=== PATIENT | female | born 1980 | race Caucasian/White ===

== ENCOUNTER → 2020-01-24 | Outpatient (CLI) | payer OTHER | END | disposition home or self-care (01) | LOC: LABWHC1 10:26 | PROVIDERS: ATTEND Surgery | DX: Z01.818 Encounter for other preprocedural examination (principal) ==

== ENCOUNTER → 2020-05-09 | Outpatient (CLI) | payer OTHER | END | disposition home or self-care (01) | LOC: LABWHC1 13:07 | PROVIDERS: ATTEND Family Medicine | DX: Z01.818 Encounter for other preprocedural examination (principal); Z20.828 Contact with and (suspected) exposure to other viral communicable diseases | CPT/HCPCS: U0003; C9803 ==

== ENCOUNTER → 2020-11-27 | Outpatient (CLI) | payer OTHER ==
[2020-11-27 08:12] LABS: Basophils % (A) 0 %; Eosinophils # (A) 0.1 k/uL (0-0.7); Eosinophils % (A) 1 %; HCT 36.1 % (34.0-46.0); HGB 11.5 gm/dL (11.4-16.0); Hypochromasia Slight; Lymphocytes # (A) 1.8 k/uL (1.0-4.8); Lymphocytes % (A) 30 %; MCH 24.8 pg (25.0-35.0); MCHC 31.9 g/dL (31.0-37.0); MCV 77.8 fL (80.0-100.0); Mean Platelet Volume 7.1; Microcytosis Slight; Monocytes # (A) 0.3 k/uL (0-1.0); Monocytes % (A) 5 %; Neutrophils # (A) 3.7 k/uL (1.3-7.7); Neutrophils % (A) 61 %; Platelet Count 233 k/uL (150-450); RBC 4.64 m/uL (3.80-5.40); RDW 15.9 % (11.5-15.5)
[2020-11-27 08:19] LABS: Albumin 3.8 g/dL (3.5-5.0); Bilirubin,Unconjugated 0.6 mg/dL (0.0-1.1); Total Bilirubin 0.6 mg/dL (0.2-1.3); Total Protein 7.6 g/dL (6.3-8.2)
--- NOTE | 2020-11-27 08:53 | US ---
EXAMINATION TYPE: US liver DATE OF EXAM: 11/27/2020 COMPARISON: NONE CLINICAL HISTORY: B18.2 Chronic viral hepatitis C. Hx Hep C with recent flair up per patient. EXAM MEASUREMENTS: Liver Length: 19.5 cm Gallbladder Wall: 0.2 cm CBD: 0.3 cm Right Kidney: 12.1 x 5.4 x 4.1 cm Pancreas: wnl Liver: Appears enlarged in size Gallbladder: Multiple echogenic foci Evidence for sonographic Mckeon's sign: neg CBD: wnl Right Kidney: No hydronephrosis or masses seen Visualized pancreas unremarkable. Visualized liver shows no concerning mass or ductal dilatation. No surrounding ascites. Gallbladder shows no shadowing mobile stones. No right-sided hydronephrosis. IMPRESSION: Hepatomegaly without intrahepatic mass or ductal dilatation.
[2020-12-01 15:05] LABS: HCV Qualitative Result DETECTED (Not detected); HCV Quant Log 5.05 (<1.08)
== END | disposition home or self-care (01) ==
LOC: RADUSWWP 07:16
PROVIDERS: ATTEND Internal Medicine Gastroenterology
DX: R16.0 Hepatomegaly, not elsewhere classified (principal); B18.2 Chronic viral hepatitis C
CPT/HCPCS: 76705; 80076; 85025; 87522; 87902

== ENCOUNTER → 2021-02-12 | Outpatient (CLI) | payer OTHER ==
[2021-02-12 18:45] LABS: Basophils # (A) 0.03 X 10*3/uL (0.00-0.10); Basophils % (A) 0.5 %; Eosinophils # (A) 0.09 X 10*3/uL (0.04-0.35); Eosinophils % (A) 1.6 %; HCT 35.2 % (37.2-46.3); HGB 10.8 g/dL (12.0-15.0); Lymphocytes # (A) 1.95 X 10*3/uL (0.90-5.00); Lymphocytes % (A) 34.3 %; MCH 25.4 pg (27.0-32.0); MCHC 30.7 g/dL (32.0-37.0); MCV 82.6 fL (80.0-97.0); Mean Platelet Volume 11.9 fL (9.5-12.2); Monocytes # (A) 0.38 X 10*3/uL (0.20-1.00); Monocytes % (A) 6.7 %; Neutrophils % (A) 56.4 %; Platelet Count 221 X 10*3/uL (140-440); RBC 4.26 X 10*6/uL (4.10-5.20); RDW 16.6 % (11.5-14.5); WBC 5.68 X 10*3/uL (4.50-10.00)
[2021-02-12 20:05] LABS: Albumin/Globulin Ratio 1.21 (1.60-3.17); Bilirubin, Conjugated 0.2 mg/dL (0.20-0.40); Bilirubin,Unconjugated 0.3 mg/dL; Globulin 3.3 g/dL (1.6-3.3); Total Bilirubin 0.5 mg/dL (0.3-1.2); Total Protein 7.3 g/dL (6.2-8.2)
== END | disposition home or self-care (01) ==
LOC: LABWHC1 13:17
PROVIDERS: ATTEND Physician Assistant
DX: B18.2 Chronic viral hepatitis C (principal)
CPT/HCPCS: 36415; 80076; 85025; 87522

== ENCOUNTER → 2021-05-14 | Outpatient (CLI) | payer OTHER ==
--- NOTE | 2021-05-15 08:20 | MR ---
MRI CERVICAL SPINE: CLINICAL HISTORY: Headaches and neck pain and left arm numbness into fingers. TECHNIQUE: Multiplanar, multisequence imaging of the cervical spine is performed without IV contrast. COMPARISON: Outside cervical spine x-ray April 20, 2021. FINDINGS: Sagittal images of the cervical spine show the craniocervical junction to appear within nor mal limits. The cervical and upper thoracic spinal cord is normal in caliber and signal. There is lo ss of normal cervical curvature. The vertebral body and intravertebral disk heights are normal. The bone marrow signal intensity is within normal limits. Axial images at C2-C3 level shows some left-sided uncovertebral facet degenerative changes with mild asymmetric neural foraminal narrowing. Axial images at C3-C4 level shows central disc protrusion effacing the anterior thecal sac, patent bi lateral neural foramina. Axial images at C4-C5 level shows broad-based left paracentral disc protrusion effacing the anterior thecal sac up to the ventral surface of the spinal cord with mild to moderate left-sided neural marquis inal narrowing. Patent right-sided neural foramina. Axial images at C5-C6 level shows left paracentral disc protrusion causing flattening of the central cervical spinal cord, there is [id number] left greater than white bilateral neural foraminal na rrowing. Axial images at C6-C7 level showed broad based right paracentral disc protrusion effacing anterior th ecal sac and causing moderate to severe left and mild to moderate right-sided neural foraminal narrow ing. Axial images at C7-T1 level appear within normal limits. IMPRESSION: Reversal of normal cervical curvature with multilevel degenerative changes as detailed ab javier.
== END | disposition home or self-care (01) ==
LOC: RADMRIMAIN 15:48
PROVIDERS: ATTEND Orthopaedic Surgery
DX: M50.223 Other cervical disc displacement at C6-C7 level (principal); M99.71 Connective tissue and disc stenosis of intervertebral foramina of cervical region; M47.812 Spondylosis without myelopathy or radiculopathy, cervical region
CPT/HCPCS: 72141

== ENCOUNTER → 2021-10-19 | Outpatient (CLI) | payer OTHER ==
[2021-10-19 22:37] LABS: Anion Gap 10.2 mmol/L (10.00-18.00); Carbon Dioxide 22.4 mmol/L (20.0-27.5); Potassium 4.4 mmol/L (3.5-5.5)
== END | disposition home or self-care (01) ==
LOC: LABPAT 15:51
PROVIDERS: ATTEND Orthopaedic Surgery Hand Surgery
DX: Z01.812 Encounter for preprocedural laboratory examination (principal); G56.02 Carpal tunnel syndrome, left upper limb
CPT/HCPCS: 80051

== ENCOUNTER → 2021-10-19 | Outpatient (CLI) | payer OTHER ==
[2021-10-19 22:38] LABS: ALT 30 U/L (8-44); AST 22 U/L (13-35); Albumin 3.9 g/dL (3.8-4.9); Albumin/Globulin Ratio 1.38 (1.60-3.17); Alkaline Phosphatase 90 U/L (41-126); Bilirubin, Conjugated <0.20 mg/dL (0.20-0.40); Globulin 2.8 g/dL (1.6-3.3); Total Bilirubin <0.15 mg/dL (0.30-1.20); Total Protein 6.7 g/dL (6.2-8.2)
[2021-10-20 01:11] LABS: Basophils # (A) 0.03 X 10*3/uL (0.00-0.10); Basophils % (A) 0.5 %; Eosinophils # (A) 0.12 X 10*3/uL (0.04-0.35); HCT 37.4 % (37.2-46.3); Immature Grans, Automated 0.3 %; Lymphocytes # (A) 2.22 X 10*3/uL (0.90-5.00); Lymphocytes % (A) 36.6 %; MCH 27.3 pg (27.0-32.0); MCHC 32.1 g/dL (32.0-37.0); MCV 85.2 fL (80.0-97.0); Mean Platelet Volume 11.6 fL (9.5-12.2); Monocytes % (A) 6.6 %; NRBC Per 100 WBC 0 /100 WBCS (0.0-0.0); Neutrophils # (A) 3.28 X 10*3/uL (1.80-7.70); Platelet Count 213 X 10*3/uL (140-440); RBC 4.39 X 10*6/uL (4.10-5.20); RDW 14.8 % (11.5-14.5); WBC 6.07 X 10*3/uL (4.50-10.00)
== END | disposition home or self-care (01) ==
LOC: LABWHC1 15:48
PROVIDERS: ATTEND Internal Medicine Gastroenterology
DX: B18.2 Chronic viral hepatitis C (principal)
CPT/HCPCS: 36415; 80076; 85025; 87522

== ENCOUNTER 2021-10-21 08:40 | Day surgery (SDC) | payer OTHER ==
[2021-10-19 10:45] VITALS: BMI 35.4
--- NOTE | 2021-10-20 11:13 | P.HPOR ---
History of Present Illness H&P Date: 10/20/21 Chief Complaint: Left carpal tunnel syndrome Subjective: This is a 40 year old female that presents today for initial evaluation regarding left hand paresthesias that have been present for 1-1.5 years. She has been seeing Dr. Batista in regards to cervical radiculopathy as well and states that she will eventually need cervical fusion in the near future. She underwent an EMG which showed moderate carpal tunnel syndrome on the left and mild on the right. She states he has both neck pain and occasional shooting pains down her arms, but predominately her hand paresthesias involve only the wrist to finger tips. She states she has a history of rheumatoid arthritis but states that she was told it was "mild" and she is not currently on any medication for it. She denies any injury. Physical Examination: LUE: AIN/PIN/Radial/Ulnar/Median motor intact. Radial/Ulnar/Median SILT. 2+/4 Radial/Ulnar pulses palpated. Positive Durkan's compression. 5/5/ APB, 5/5 FDI. EMG: EMG reveals bilateral carpal tunnel syndrome, mild on the right, moderate on the left with C6-7 nerve root irritation present. Impression: 1.) B/L carpal tunnel syndrome, left worse than right Plan: Diagnosis and treatment options were discussed with the patient. Due to the long standing presence of her symptoms she states she would like to proceed with surgical intervention with a left open carpal tunnel release. I explained that she does have some overlap in her symptoms with concurrent cervical radiculopathy but she does have electrodiagnostic evidence of compression of the median nerve at the wrist. Risks and benefit of surgery including bleeding, infection, damage to surrounding tissue, need for further surgery, residual numbness were discussed and the patient wished to go forward with surgery. The patient was agreeable with this plan of action and will follow up post operatively. She is to obtain pre-op clearance prior to surgery, we will plan for open technique due to rheumatoid history. Jose Gupta DO Orthopedic Surgeon Past Medical History Past Medical History: GERD/Reflux Additional Past Medical History / Comment(s): Varicose veins. N/T TO LEFT HAND/WRIST History of Any Multi-Drug Resistant Organisms: None Reported Past Surgical History: Section, Orthopedic Surgery Additional Past Surgical History / Comment(s): ACL replaced right knee, 5 rectal surgeries, Section X1. COLONOSCOPY Past Anesthesia/Blood Transfusion Reactions: No Reported Reaction Smoking Status: Former smoker - Past Family History Father Family Medical History: Cancer Additional Family Medical History / Comment(s): Prostate cancer with mets. Medications and Allergies Home Medications Medication Instructions Recorded Confirmed Type EPINEPHrine (Auto Inject) [Epipen] 0.3 mg IM ONCE PRN 07/29/21 10/19/21 History HYDROcodone/APAP 7.5-325MG [[place] 1 tab PO QID PRN 07/29/21 10/19/21 History 7.5-325] Medroxyprogesterone Acetate 150 mg IM Q90D 07/29/21 10/19/21 History [Depo-Provera] polyethylene glycoL 3350 [Miralax] 17 gm PO HS 07/29/21 10/19/21 History Allergies Allergy/AdvReac Type Severity Reaction Status Date / Time bee venom protein (honey bee) Allergy Anaphylaxis Verified 10/19/21 10:33 Physical Examination Osteopathic Statement: *. No significant issues noted on an osteopathic structural exam other than those noted in the History and Physical/Consult.
--- NOTE | 2021-10-20 11:15 | P.HPOR ---
History of Present Illness H&P Date: 10/20/21 Chief Complaint: Right carpal tunnel syndrome, DeQuervain's Tenosynovitis Subjective: This is a 35 year old female that presents today for initial evaluation regarding bilateral hand numbness and right wrist soreness that has been present for 4-6 months. She has tried several injections with her [employer] and only had temporary relief from the carpal tunnel injection and right wrist injection. She states her numbness is worse at night and is associated with the thumb, index and middle fingers mainly. She has tried splinting at night time with little relief. Physical Examination: RUE: AIN/PIN/Radial/Ulnar/Median motor intact. Radial/Ulnar/Median SILT. 2+/4 Radial/Ulnar pulses palpated. 5/5 APB, 5/5 FDI. Positive Finkelsteins, negative CMC grind, Positive Durkan's compression. LUE: AIN/PIN/Radial/Ulnar/Median motor intact. Radial/Ulnar/Median SILT. 2+/4 Radial/Ulnar pulses palpated. 5/5 APB, 5/5 FDI. negative Finkelsteins, negative CMC grind, Positive Durkan's compression. Imaging: X-Rays of the bilateral wrist demonstrate no acute osseus abnormality. Impression: 1.) Right Dequervains Tenosynovitis 2.) B/L Carpal tunnel syndrome. Plan: Diagnosis and treatment options were discussed with the patient. She has failed conservative treatment of her right wrist tendonitis and bilateral carpal tunnel syndrome and would like to pursue surgical intervention. She will be scheduled for a right first dorsal compartment release and right endoscopic/possible open carpal tunnel release. Risks and benefit of surgery including bleeding, infection, damage to surrounding tissue, need for further surgery, possible need to convert to open procedure, residual numbness were discussed and the patient wished to go forward with surgery. Pre op labs/ EKG will be ordered. -Jose Gupta DO Orthopedic Hand/Upper Extremity Surgeon Past Medical History Past Medical History: GERD/Reflux Additional Past Medical History / Comment(s): Varicose veins. N/T TO LEFT HAND/WRIST History of Any Multi-Drug Resistant Organisms: None Reported Past Surgical History: Section, Orthopedic Surgery Additional Past Surgical History / Comment(s): ACL replaced right knee, 5 rectal surgeries, Section X1. COLONOSCOPY Past Anesthesia/Blood Transfusion Reactions: No Reported Reaction Smoking Status: Former smoker - Past Family History Father Family Medical History: Cancer Additional Family Medical History / Comment(s): Prostate cancer with mets. Medications and Allergies Home Medications Medication Instructions Recorded Confirmed Type EPINEPHrine (Auto Inject) [Epipen] 0.3 mg IM ONCE PRN 07/29/21 10/19/21 History HYDROcodone/APAP 7.5-325MG [[place] 1 tab PO QID PRN 07/29/21 10/19/21 History 7.5-325] Medroxyprogesterone Acetate 150 mg IM Q90D 07/29/21 10/19/21 History [Depo-Provera] polyethylene glycoL 3350 [Miralax] 17 gm PO HS 07/29/21 10/19/21 History Allergies Allergy/AdvReac Type Severity Reaction Status Date / Time bee venom protein (honey bee) Allergy Anaphylaxis Verified 10/19/21 10:33 Physical Examination Osteopathic Statement: *. No significant issues noted on an osteopathic structural exam other than those noted in the History and Physical/Consult.
[~2021-10-21 08:40] MED LIST: HYDROmorphone 0.5 MG/0.5 ML SYRINGE IVP PRN; LACTATED RINGERS 1,000 ML IV SCH; LIDOCAINE 1% (10MG/ML) FOR IV START INTRADERMA PRN; ONDANSETRON 4 MG/2 ML VIAL IVP ONE; Pre Op ABX Message 1 EACH MISC MISCELLANE ONE
[2021-10-21] MEDS ORDERED: KETAMINE 10 MG/ML 20 ML VIAL ONE (09:27)
[2021-10-21] MEDS ORDERED: fentaNYL (PF) 50 MCG/ML 2 ML AMP ONE (09:27)
[2021-10-21] MEDS ORDERED: LIDOCAINE 1% INJ 10MG/ML (20 ML MDV) ONE (09:27)
[2021-10-21] MEDS ORDERED: PROPOFOL 10 MG/ML 20 ML VIAL IV ONE (09:27)
[2021-10-21] MEDS ORDERED: MIDAZOLAM 2 MG/2 ML VIAL ONE (09:27)
[2021-10-21] MEDS ORDERED: LIDOCAINE 1% INJ 10MG/ML (20 ML MDV) SQ ONE (09:36)
[2021-10-21] MEDS ORDERED: BUPIVACAINE (PF) 0.5% 30 ML VIAL SQ ONE (09:36)
[2021-10-21 10:25] VITALS: BP 116/72; PULSE 85; RESP 16
--- NOTE | 2021-10-22 11:22 | P.OP ---
Date of Procedure: 10/21/21 Preoperative Diagnosis: 1.) Left carpal tunnel syndrome Postoperative Diagnosis: Left carpal tunnel syndrome Procedure(s) Performed: 1.) Left open carpal tunnel release Anesthesia: MAC Surgeon: Jose Gupta Estimated Blood Loss (ml): 0 Pathology: none sent Condition: stable Disposition: PACU Description of Procedure: This is a 41 year old female who presents today for a left open carpal tunnel release after having failed conservative treatment in the past. Risks and benefits of surgery were discussed with the patient including bleeding, damage to surrounding tissue, infection, need for further surgery as well as risks of anesthesia including pulmonary embolism and even and the patient wished to proceed with surgical intervention. The patients was seen in the pre-operative area by myself. Consent and H&P were completed and updated. The correct extremity was marked in the pre-operative area by myself and all other questions were answered. Operative Narrative: The patient was brought to the operating room by the department of anesthe georges. They remained on the portable stretcher and a rolling hand table was brought to the side of the operative extremity. Pre-operative time out was performed indicating the correct patient, procedure and laterality. All in the room agreed. The patient was then drifted off to sleep by the department of anesthesia. MAC anesthesia was utilized and a 50:50 mixture of 1% Lidocaine and 0.5% bupivacaine was injected into the subcutaneous tissues of the palmar skin, 9ccs total. A nonsterile tourniquet was then applied to the operative extremity and the left upper extremity was then prepped and draped in normal sterile fashion. The operative extremity was the exsanguinated with an esmarch bandage and the tourniquet was inflated to 250mmHg. 15 blade scalpel was utilized to make a longitudinal incision on the palmar skin in line with the radial boarder of the ring finger to a point distally at the intersection of Kaplans cardinal line. Heiss retractor was utilized to spread subcutaneous tissue and scalpel was used to cut through the superficial palmar fascia to reveal the transverse carpal ligament. The transverse carpal ligament was then sharply incised in line with the incision and tenotomy scissors were used to spread distally and the distal portion of the transverse carpal ligament was released using tenotomy scissors from distal to proximal under direct visualization. The median nerve was directly visualized and was intact. Proximal fascia of the distal forearm was also released under direct visualization taking care to preserve the palmar cutaneous branch of the median nerve. The wound was then closed with 4-0 nylon suture in a horizontal mattress fashion. Sterile dressing was applied consisting of adaptic, 4x4s, webril, and an alana bandage. Tourniquet was let down and the hand immediately was well perfused. The patient was then woken by the department of anesthesia and transferred to PACU in stable condition. Simone RODRIGUEZ was present for the case in it's entirety for skilled assistance and protection of vital neurovascular structures. Jose Gupta D.O. Orthopedic Hand/Upper Extremity Surgeon
== END 2021-10-21 10:35 | disposition home or self-care (01) ==
LOC: OR 08:40
PROVIDERS: ATTEND Orthopaedic Surgery Hand Surgery
DX: G56.02 Carpal tunnel syndrome, left upper limb (principal); M65.4 Radial styloid tenosynovitis [de Quervain]; K21.9 Gastro-esophageal reflux disease without esophagitis; I83.90 Asymptomatic varicose veins of unspecified lower extremity; Z98.891 History of uterine scar from previous surgery; Z98.890 Other specified postprocedural states; Z87.891 Personal history of nicotine dependence; Z80.42 Family history of malignant neoplasm of prostate; Z97.2 Presence of dental prosthetic device (complete) (partial); Z79.3 Long term (current) use of hormonal contraceptives; Z79.899 Other long term (current) drug therapy; Z91.030 Bee allergy status
CPT/HCPCS: 81025; 64721; J2250; J2405; J2001; J3010; J2704

== ENCOUNTER → 2023-12-30 | Outpatient (CLI) | payer OTHER ==
--- NOTE | 2024-01-04 12:15 | MM ---
Reason for Exam: Screening (asymptomatic). Patient History: Menarche at age 11. First Full-Term at age 16. Premenopausal. Risk Values: Leeann 5 year model risk: 0.6%. NCI Lifetime model risk: 7.0%. Tissue Density: The breasts are heterogeneously dense, which may obscure small masses. Findings: Analyzed By CAD. There is a small grouped calcification within the upper outer margin of the left breast for which spot magnification is recommended. There is an asymmetric density in the inner upper margin right breast and upper central left breast. Spot compression views are recommended. Overall Assessment: Incomplete: need additional imaging evaluation, BI-RAD 0 Management: Diagnostic Mammogram of both breasts. . Patient should continue monthly self-breast exams. A clinical breast exam by your physician is recommended on an annual basis. This exam should not preclude additional follow-up of suspicious palpable abnormalities. Note on Leeann scores and lifetime risk: 1. A Leeann score greater than 3% is considered moderate risk. If this is the case, consider specialist referral to assess eligibility for a risk reducing agent. 2. If overall lifetime risk for the development of breast cancer is 20% or higher, the patient may qualify for future screening with alternating mammogram and breast MRI. Electronically signed and approved by: Diaz Beasley M.D. Radiologis
--- NOTE | 2024-01-06 13:43 | US ---
EXAMINATION TYPE: US venous doppler duplex LE DATE OF EXAM: 12/30/2023 8:51 AM COMPARISON: NONE CLINICAL INDICATION: Female, 43 years old with history of R22.42 LOCALIZED SWELLING, MASS AND LUMP, L EFT LOW; Bilateral leg swelling SIDE PERFORMED: Bilateral TECHNIQUE: The lower extremity deep venous system is examined utilizing real time linear array sonog champ with graded compression, doppler sonography and color-flow sonography. VESSELS IMAGED: Common Femoral Vein Deep Femoral Vein Greater Saphenous Vein * Femoral Vein Popliteal Vein Small Saphenous Vein * Proximal Calf Veins (* superficial vessels) Right Leg: Appears negative for DVT Left Leg: Appears negative for DVT IMPRESSION: 1. Bilateral lower extremity ultrasound negative for deep venous thrombosis.
== END | disposition home or self-care (01) ==
LOC: RADUSWWP 08:45
PROVIDERS: ATTEND Family Medicine
DX: Z12.31 Encounter for screening mammogram for malignant neoplasm of breast (principal); R22.43 Localized swelling, mass and lump, lower limb, bilateral
CPT/HCPCS: 77067; 93922; 93970

== ENCOUNTER → 2024-01-05 | Outpatient (CLI) | payer OTHER ==
--- NOTE | 2024-01-05 15:31 | MM ---
Reason for Exam: Additional evaluation requested from abnormal screening. Last screening mammogram was performed less than 1 month ago. Patient History: Menarche at age 11. First Full-Term at age 16. Premenopausal. Risk Values: Leeann 5 year model risk: 0.6%. NCI Lifetime model risk: 7.0%. Prior Study Comparison: 12/30/2023 Bilateral MG screening mammo w CAD, [facility]. Tissue Density: There are scattered areas of fibroglandular density. Findings: Analyzed By CAD. On the right, the question focal asymmetry posteriorly upper outer quadrant disperses on additional views compatible with superimposition shadow. On the left, there is improved appearance to the 12-1 o'clock focal asymmetry on additional views suggesting islands of fibroglandular tissue. Posterior upper outer quadrant calcifications on magnification views show approximately 4 round and coarse calcifications favoring a benign etiology. Short interval follow-up recommended. Overall Assessment: Probably benign, BI-RAD 3 Management: Diagnostic Mammogram of the left breast in 6 months. For probably benign calcifications. Results were given to the patient verbally at the time of exam. Patient should continue monthly self-breast exams. A clinical breast exam by your physician is recommended on an annual basis. This exam should not preclude additional follow-up of suspicious palpable abnormalities. Note on Leeann scores and lifetime risk: 1. A Leeann score greater than 3% is considered moderate risk. If this is the case, consider specialist referral to assess eligibility for a risk reducing agent. 2. If overall lifetime risk for the development of breast cancer is 20% or higher, the patient may qualify for future screening with alternating mammogram and breast MRI. Electronically signed and approved by: Lissa Montaño M.D. Radiologist
== END | disposition home or self-care (01) ==
LOC: RADMAMWWP 14:34
PROVIDERS: ATTEND Family Medicine
DX: R92.323 Mammographic fibroglandular density, bilateral breasts (principal)
CPT/HCPCS: 77066; G0279; 77062

== ENCOUNTER → 2024-02-02 | Outpatient (CLI) | payer OTHER ==
--- NOTE | 2024-02-03 14:45 | XR ---
EXAMINATION TYPE: XR cervical spine w flex/ext DATE OF EXAM: 02/02/2024 5:26 PM CLINICAL INDICATION:Female, 43 years old with history of M50.123 CERVIACAL DISC DISORDER; [facility] COMPARISON: None TECHNIQUE: The cervical spine was imaged in frontal, lateral, odontoid and bilateral oblique. Flexion and extension views also obtained. FINDINGS: The osseous structures show normal alignment without evidence of an acute fracture. No significant ve rtebral body osteophytes or facet joint arthropathy. The intervertebral disk spaces are preserved. Pe dicles are intact. Soft tissues are within normal limits. The odontoid appears intact. No abnormal a lignment on flexion or extension views. IMPRESSION: 1. No fracture or dislocation. 2. Moderate degenerative disc disease changes of the cervical spine.
== END | disposition home or self-care (01) ==
LOC: RADXRMAIN 16:37
PROVIDERS: ATTEND Pain Medicine Interventional Pain Medicine
DX: M50.123 Cervical disc disorder at C6-C7 level with radiculopathy (principal); M50.30 Other cervical disc degeneration, unspecified cervical region; M47.812 Spondylosis without myelopathy or radiculopathy, cervical region
CPT/HCPCS: 72052

== ENCOUNTER 2024-03-26 13:14 | Emergency (ER) | payer OTHER ==
--- NOTE | 2024-04-25 10:34 | US ---
Patient: Rhona Hernandez Ordering Physician: Unknown, Unknown ID: [id number] Phone, Pager: Phone: N/A Dmitriy keshia: N/A : 1980 Age/Gender: 43Y, F Primary Location: N/A Procedure: US OB <=14 wks transvag Study Date: 03/26/2024 4:02:00 PM EXAMINATION TYPE: US OB <=14 wks transvag DATE OF EXAM: 03/27/2024 COMPARISON: None CLINICAL INDICATION: Unknown, old with history of ; Viable IUP 7wks/4days JOHN: 11/08/24 HR 147 Yolk sac 0.4cm corpus luteum: cystic area left ovary = 2.6 x 2.5 x 2.6cm IMPRESSION: Single viable intrauterine with corpus luteal cyst.
== END 2024-03-26 17:00 | disposition home or self-care (01) ==
LOC: EC 13:14
CPT/HCPCS: 76801; 76817; 86850; 86900; 86901; 99283

== ENCOUNTER 2024-03-27 14:17 | Emergency (ER) | payer OTHER ==
--- NOTE | 2024-04-23 13:37 | US ---
EXAMINATION TYPE: Transabdominal DATE OF EXAM: 03/27/2024 0827 hours Images presented 04/23/2024 12:30 PM. Prior dictation cannot be located. COMPARISON: 03/26/2024 CLINICAL INDICATION: Female, 43 years old with history of bleeding; Unknown LMP, Pt thinks she is 7 w eeks. Bleeding. Downtime exam EXAM PERFORMED: Transvaginal (TV) and Transabdominal (TA) EXAM MEASUREMENTS: GESTATIONAL AGE / DATING Physician Established: Not yet established Dates by LMP: LMP unknown Dates by First Scan: Unable to date by first scan Dates by Current Scan for: No IUP seen at this time MATERNAL ANATOMY Uterus: 13.6 x 8.0 x 5.9 cm Right Ovary: Not visualized Left Ovary: 3.4 x 3.2 x 3.3 cm, probable cyst = 2.5 cm Post CDS / Adnexa: No free fluid Presence of free fluid: No GESTATION / SURVEY IUP: No IUP seen at this time Date of LMP: Unknown Beta HcG (if available): Not available at this time No GS, YS or CRL visualized at time of scan. Previous intrauterine gestation prior date is not identified. It is be compatible spontaneous abortio n. IMPRESSION: 1. Previous intrauterine gestation is not identified at this time. Findings could be compatible with spontaneous . No retained products identified. [facility], , 04/23/2024 1:34 PM
== END 2024-03-27 21:30 | disposition home or self-care (01) ==
LOC: EC 14:17
CPT/HCPCS: 76801; 76817; 99284